=== PATIENT | male | born 1955 | race Two or more races ===

== ENCOUNTER 2017-12-28 13:46 | Emergency (ER) | payer MEDICAID, OTHER ==
[2017-12-28 13:55] VITALS: RESP 18; TEMP 98.4; O2SAT 100
--- NOTE | 2017-12-28 15:11 | ED PDOC ---
HPI: Hypertension/Hypotension Time Seen by Provider: 12/28/17 14:27 Chief Complaint (Nursing): Weakness/Neurological Deficit Chief Complaint (Provider): Elevated BP History Per: Patient History/Exam Limitations: no limitations Additional Complaint(s): Pt states he drank coffee this morning then felt unwell, took his BP, L 156/-, R 170/90, came to ED for BP check. States compliant with HTN med. Denies CP, SOB, BROWNLEE, paresthesias, weakness, palpitations. No complaints at this time. Past Medical History Reviewed: Nursing Documentation, Vital Signs Vital Signs: Last Vital Signs Temp 98.4 F 12/28/17 13:48 Pulse 82 12/28/17 13:48 Resp 18 12/28/17 13:48 BP 162/88 H 12/28/17 13:48 Pulse Ox 100 12/28/17 13:48 - Medical History PMH: HTN - Family History Family History: States: Unknown Family Hx - Social History Current smoker - smoking cessation education provided: No Alcohol: None - Home Medications Home Medications: Ambulatory Orders Medication Instructions Recorded Acetaminophen with Codeine 1 tab PO Q6H PRN #10 tab 08/25/15 [Tylenol with Codeine No. 3 300 mg-30 mg] Naproxen [Naprosyn Tab] 250 mg PO BID PRN #20 tab 08/25/15 - Allergies Allergies/Adverse Reactions: Allergies Allergy/AdvReac Type Severity Reaction Status Date / Time No Known Allergies Allergy Verified 12/28/17 13:48 Review of Systems Constitutional: Negative for: Fever, Chills Eyes: Negative for: Vision Change Cardiovascular: Negative for: Chest Pain, Palpitations Respiratory: Negative for: Cough, Shortness of Breath Gastrointestinal: Negative for: Nausea, Vomiting, Abdominal Pain, Diarrhea Genitourinary Male: Negative for: Dysuria, Hematuria Musculoskeletal: Negative for: Neck Pain, Back Pain Skin: Negative for: Rash, Lesions Neurological: Negative for: Weakness, Numbness, Incoordination, Change in Speech , Confusion, Seizures, Altered Mental Status, Headache, Dizziness Physical Exam - Reviewed Nursing Documentation Reviewed: Yes Vital Signs Reviewed: Yes - Physical Exam Appears: Positive for: Well, No Acute Distress Head Exam: Positive for: ATRAUMATIC, NORMAL INSPECTION Skin: Positive for: Normal Color, Warm, Dry Eye Exam: Positive for: Normal appearance, EOMI, PERRL Neck: Positive for: Normal, Painless ROM, Supple Cardiovascular/Chest: Positive for: Regular Rate, Rhythm Respiratory: Positive for: Normal Breath Sounds Gastrointestinal/Abdominal: Positive for: Normal Exam, Bowel Sounds, Soft. Negative for: Tenderness Back: Positive for: Normal Inspection. Negative for: L CVA Tenderness, R CVA Tenderness Extremity: Positive for: Normal ROM Neurologic/Psych: Positive for: Alert, parts analyst II-XII, Oriented. Negative for: Motor/Sensory Deficits, Aphasia, Facial Droop - Laboratory Results Result Diagrams: 12/28/17 15:48 12/28/17 15:48 - ECG Interpretation Of ECG: NSR @ 67, LVH. O2 Sat by Pulse Oximetry: 100 Pulse Ox Interpretation: Normal - Radiology X-Ray: Interpreted by Id X-Ray Interpretation: No Acute Disease Medical Decision Making Medical Decision Makin yo male presents for BP check. - labs - EKG Accession No. : [id number] Patient Name / ID : DIANA GARDNER / [id number] Exam Date : 12/28/2017 17:21:09 ( Approved ) Study Comment : Sex / Age : M / 62Y Creator : Freddie Can MD Dictator : Freddie Can MD Lumber Bearer : Pipeline Superintendent : Freddie Can MD Approver2 : Report Date : 12/28/2017 17:57:07 My Comment : Date of service: 12/28/2017 HISTORY: HTN COMPARISON: No prior. TECHNIQUE: Chest PA and lateral FINDINGS: LUNGS: No active pulmonary disease. PLEURA: No significant pleural effusion identified. No pneumothorax apparent. CARDIOVASCULAR: Atherosclerotic aortic calcifications. Cardiomediastinal silhouette at the upper limits of normal in size. Prominent right epicardial fat pad. OSSEOUS STRUCTURES: Mild degenerative changes. VISUALIZED UPPER ABDOMEN: Normal. OTHER FINDINGS: None. IMPRESSION: No active disease. 16:30 Pt requesting discharge. 17:00 Pt requesting to be discharged. Disposition - Clinical Impression Clinical Impression: Hypertension - Disposition Referrals: [facility] [Outside] [facility] [Outside] Disposition: Routine/Home Disposition Time: 17:28 Condition: GOOD Additional Instructions: CONTINUE CURRENT MEDICATIONS. Instructions: High Blood Pressure in Adults Forms: [employer] (Hungarian) Print Language: LATVIAN
[2017-12-28 15:53] LABS: BASO % 0.7 % (0.0-2.0); EOS # 0.1 K/uL (0.0-0.7); EOS % 1.3 % (0.0-4.0); HEMOGLOBIN 13.5 g/dL (12.0-18.0); LYMPH # 1.7 K/uL (1.0-4.3); LYMPH % 26.4 % (20.0-40.0); MEAN CORPUSCULAR HEMOGLOBIN 28.6 pg (27.0-31.0); MEAN CORPUSCULAR HGB CONC 34.1 g/dL (33.0-37.0); MEAN PLATELET VOLUME 8.6 fl (7.2-11.7); MONO # 0.6 K/uL (0.0-0.8); MONO % 9.8 % (0.0-10.0); NEUT % 61.8 % (50.0-75.0); NRBC % 0.1 % (0.0-0.0); RBC 4.7 Mil/uL (4.40-5.90); WHITE BLOOD COUNT 6.4 K/uL (4.8-10.8)
[2017-12-28 16:04] LABS: ALB/GLOB RATIO 1.1 (1.0-2.1); ALBUMIN 4.1 g/dL (3.5-5.0); ALT/SGPT 21 U/L (21-72); AST/SGOT 27 U/L (17-59); BLOOD UREA NITROGEN 13 mg/dl (9-20); CALCIUM 9.5 mg/dL (8.4-10.2); GFR AFRICAN-AMERICAN > 60; GFR NON-AFRICAN AMERICAN > 60
[2017-12-28 16:08] LABS: SQUAMOUS EPITHIAL < 1 /hpf (0-5); URINE BILIRUBIN NEGATIVE (NEGATIVE); URINE BLOOD NEGATIVE (NEGATIVE); URINE CLARITY CLEAR (Clear); URINE COLOR STRAW (YELLOW); URINE GLUCOSE (UA) NEG (Normal); URINE LEUKOCYTE ESTERASE NEG Leu/uL (Negative); URINE PROTEIN NEGATIVE (NEGATIVE); URINE UROBILINOGEN 0.2-1.0 mg/dL (0.2-1.0)
[2017-12-28 17:52] VITALS: BP 160/88; PULSE 80
--- NOTE | 2017-12-28 17:58 | RAD ---
Date of service: 12/28/2017 HISTORY: HTN COMPARISON: No prior. TECHNIQUE: Chest PA and lateral FINDINGS: LUNGS: No active pulmonary disease. PLEURA: No significant pleural effusion identified. No pneumothorax apparent. CARDIOVASCULAR: Atherosclerotic aortic calcifications. Cardiomediastinal silhouette at the upper limits of normal in size. Prominent right epicardial fat pad. OSSEOUS STRUCTURES: Mild degenerative changes. VISUALIZED UPPER ABDOMEN: Normal. OTHER FINDINGS: None. IMPRESSION: No active disease.
--- NOTE | 2017-12-29 08:08 | CARD ---
APPROVED REPORT Date of service: 12/28/2017 EKG Measurement Heart [id number] <Conclusion> Sinus rhythm with premature atrial complexes Possible Left atrial enlargement Left ventricular hypertrophy Abnormal ECG
== END 2017-12-28 17:47 | disposition home or self-care (01) ==
LOC: H.ER 13:46
DX: I10 Essential (primary) hypertension (principal); M62.81 Muscle weakness (generalized); I49.1 Atrial premature depolarization